=== PATIENT | male | born 1990 | race Caucasian/White ===

== ENCOUNTER → 2021-07-02 00:04 | Outpatient (CLI) | payer OTHER, SELFPAY ==
[2021-07-02 11:52] LABS: SARS-CoV-2 RNA PCR Negative
== END ==
PROVIDERS: Visit Provider Surgery
DX: Z01.812 Encounter for preprocedural laboratory examination (principal); Z20.822 Contact with and (suspected) exposure to COVID-19
CPT/HCPCS: C9803; U0003; U0005

== ENCOUNTER 2021-07-06 02:41 | Day surgery (SDC) | payer OTHER, SELFPAY ==
[2021-06-28 10:33] VITALS: BMI 274.5
--- NOTE | 2021-06-28 10:39 | PC.NURSE ---
Report to the Outpatient Waiting Room, entrance under the green pavilion located off [facility], at time __0630 on date ___07/06/21____. OR Time: . - You will be asked a series of questions to screen for COVID 19 for your protection. - A mask is required within the hospital. - No visitors are allowed at this time. Preoperative COVID Testing Requirements: No COVID Test needed if: (proof is required; if not received patient will have Rapid Test prior to entry) - Patient has received COVID Vaccine at least 14 days prior to procedure date or - Patient has positive COVID test result within last 90 days of surgery date. COVID Test needed if above criteria is not met If not COVID vaccinated a COVID test must be conducted within 72 hours of surgery and patient is asked to isolate self from time of testing until procedure. You will go to the [facility] [facility] Testing Site for your COVID testing. The [facility] [facility] is located at the corner of [address] from [facility]. You will only be called if COVID results are positive and your surgeon may reschedule your elective surgery date. Patients may have clear liquids (water, carbonated beverages, clear teas, apple juice) until 3 hours prior to surgery with a maximum of 20 ounces. - No food from midnight until time of surgery - Infants may have breast milk until 4 hours before surgery, infant formula 6 hours prior to surgery. - Children will be allowed to drink immediately following surgery. If applicable, please bring a bottle or sippy cup to assist with drinking. Juice, water, soda, and popsicles are readily available. For infants on formula, please bring formula the day of surgery. Pacifiers are allowed. Take the following medications with a SIP of water the morning of surgery: NONE Medications to discontinue per physician NONE Date to take last dose___NONE Please no make-up, nail tunisian, hairspray, perfume, deodorant, or body powder the day of surgery. No jewelry (including any body piercings) or valuables the day of surgery, leave them at home. Please take a shower or bath the night before, or the morning of, surgery with an antibacterial soap. Wear comfortable, loose fitting clothing. Children are encouraged to wear pajamas. - Jewelry must be removed prior to entering the operating room. Rings and piercings that are not removed may be cut off. - The hospital will not accept responsibility for valuables. - Please leave all valuables, including medications, at home the day of surgery. If you are going home after surgery, a licensed jeep driver must drive you home. - NO public transportation without another adult. - We recommend that an adult stay with you for 24 hours following discharge. - We also recommend that you do not drive, make important decision, drink alcoholic beverages, or take any drugs that were not prescribed by your health care provider for at least 24 hours after your discharge time. For Pediatric surgeries, we recommend two adults accompany the child home (only one inside the building at this time). Follow any additional instructions given to you from your surgeon. Telephone instructions given to PATIENT___and asked if any additional questions and then verbalized understanding. Patient advised to call surgeon office or pre surgery nurse liaison [phone] if any additional questions.
--- NOTE | 2021-07-05 15:59 | P.PNAN_ITS ---
Anes - Initial Pre Proc Eval Procedure: Operation Date: 07/06/21 08:30 Proposed Procedures p Excision of Skin Lesion Right Upper Thigh - Magnus Hair MD Date/Time: 07/05/21 15:59 Surgeon: Magnus Hair MD Pre Op Diagnosis: right thigh skin lesion Patient Data Age: 30 Gender: M Height: 1.83 m Weight: 102 kg Allergies Allergy/AdvReac Type Severity Reaction Status Date / Time No Known Allergies Allergy Verified 06/14/21 09:51 Home Medications Medication Instructions Recorded Confirmed Type No Home Medications 06/28/21 06/28/21 History Patient hx anesthesia problems: none Family hx anesthesia problems: none Results Review: All pre-operative results and documents have been reviewed as part of the pre-operative evaluation. FOR[facility] Past Medical History Medical History (Updated 07/05/21 @ 16:00 by Jeremy Knott MD) No pertinent past medical history Obesity Surgical History Surgical History H/O cardiac radiofrequency ablation 2015 [facility] Family History Family History Father Patient's father is in good health Mother Diabetes mellitus Sibling Patient's sister is in good health Other Heart disease Social History Social History Smoking status: Never smoker Alcohol intake: current Drinks per week: 2 Alcohol use details: RARELY Substance use: never Substance use type: does not use Living arrangements: with family 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 Informed Consent: The patient's anesthetic plan and its attendant risks and benefits were discussed with the patient/family/POA. Questions were solicited and answers provided to the satisfaction of the patient/family/POA.
[2021-07-06 06:39] VITALS: BP 131/90; PULSE 77; RESP 16; TEMP 36.9; O2SAT 100
[2021-07-06] MEDS: LACTATED RINGERS 1,000 ML 30 ML IV CONT (07:11)
--- NOTE | 2021-07-06 07:51 | WPDHPUPDATE1 ---
History and Physical Update Update Date/Time: 07/06/21 07:51 History and Physical has been reviewed, including an updated exam of the patient. There are NO changes in the patient's condition. Risks, benefits, and alternatives have been discussed and questions answered. Patient agrees to proceed with procedure.
[2021-07-06] MEDS: ceFAZolin 2 GM/D5W 50 ML 2 GM/50 ML BAG IVPB (08:28)
[2021-07-06] MEDS: BUPIVACAINE/EPINEPHRINE 0.5% 30 ML VIAL INFILTRATE (08:42)
[2021-07-06 09:26] VITALS: BP 131/73; PULSE 93; RESP 16; O2SAT 97
--- NOTE | 2021-07-06 09:34 | W.PM.PROC2 ---
Procedure Note - Detailed Date of Procedure 07/06/21 Pre-op Diagnosis right thigh skin nodule Post-op Diagnosis same Procedure Performed Excision 2.5 cm skin nodule right anterior thigh with 6 mm margins, 3.7 cm excision. 14 cm layered closure. Re-excision posterior margin. 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 He is taken to surgery now for excision. Findings There was a significant subcutaneous component of the nodule and it was harder than it appeared to be in the office. As we proceeded I was somewhat concerned this may represent a neoplasm. It was excised with 6 mm margins and when the posterior or deep margin seemed thin, I reexcised some additional subcutaneous tissue of the anterior right thigh down to the muscular fascia for re-excision of the posterior margin. Description of Procedure The patient was checked in the preoperative holding area. The area of the lesion and the anticipated excision site was marked on the skin. He was taken to surgery and induced into general anesthesia with IV sedation. The right anterior thigh was prepped and draped. Palpating the lesion, it was firmer than I had appreciated before. The edges extended in a subcutaneous manner farther than originally appreciated. I measured the lesion including the subcutaneous component and it was 2.5 cm. I read through the ellipse making it wider and longer around the lesion. I then infiltrated local anesthetic in the area of the anticipated excision. The area was thoroughly infiltrated with local. I then excised an ellipse around the lesion that included 6 mm margins on each side. The width of the excision was 3.7 cm. The skin and subcutaneous were excised. The lesion was never entered but the deep margin was considerably thinner than the lateral margins. I infiltrated additional local into the subcutaneous over the area of the deep margin. I then excised the residual subcutaneous down to the anterior muscular fascia and sent this as re-excision of the deep margin. Cautery was used for hemostasis. I then undermined the subcutaneous just superficial to the muscular fascia all around the area of the excision. I then closed the subcutaneous fascia with interrupted 3-0 Vicryl suture, approximating the subcutaneous tissue. I then placed multiple subcuticular interrupted 4 0 Vicryl suture to approximate the skin. A running 4-0 Monocryl skin suture was then placed to finish the closure. The wound was dressed with Exofin surgical adhesive. The patient was awakened and taken to outpatient surgery in good condition. Sponge and needle counts were correct x2. Estimated Blood Loss 5 Drains No Packing No Pathology yes (Skin nodule right anterior thigh, re-excision deep margin) Complications No immediate complications Condition stable Disposition same day
[2021-07-06 09:50] VITALS: BP 128/85; PULSE 97; RESP 16
[2021-07-06 10:10] VITALS: BP 121/81; PULSE 85; RESP 16
== END 2021-07-06 10:19 | disposition home or self-care (01) ==
PROVIDERS: PCP Pediatrics; Visit Provider Surgery
PROC: (CPT 11404; principal; 2021-07-06 08:30)
DX: D48.5 Neoplasm of uncertain behavior of skin (principal); E66.9 Obesity, unspecified; Z68.31 Body mass index [BMI] 31.0-31.9, adult
CPT/HCPCS: 11404; 12035; 88305; 88342; C9803; J0690; J1100; J1170; J2250; J2405; J2704; J3010; J7120; U0003; U0005